=== PATIENT | female | born 2000 | race Caucasian/White ===

== ENCOUNTER 2022-06-02 08:14 | Emergency (ER) | payer MEDICAID, OTHER ==
[~2022-06-02] VITALS: Ht 170.2 cm; Wt 70.0 kg
[2022-06-02 08:40] VITALS: BP 133/94
[2022-06-02] MEDS ORDERED: ACET-1158 PO (09:26)
[2022-06-02] MEDS ORDERED: CYCL-837 PO (09:26)
== END 2022-06-02 09:22 | disposition home or self-care (01) ==
LOC: EDBD 08:14 → EDUNIT# 08:14 → ER 08:14
DX: S16.1XXA Strain of muscle, fascia and tendon at neck level, initial encounter (principal); R51.9 Headache, unspecified; M79.661 Pain in right lower leg; M79.662 Pain in left lower leg; V43.52XA Car driver injured in collision with other type car in traffic accident, initial encounter; Y93.89 Activity, other specified; Y92.410 Unspecified street and highway as the place of occurrence of the external cause; Y99.8 Other external cause status
CPT/HCPCS: 81002; 81025